=== PATIENT | female | born 1960 | race Caucasian/White ===

== ENCOUNTER 2024-03-12 14:57 | Inpatient (IN) | payer OTHER ==
[2024-03-12] MEDS ORDERED: Acetaminophen 325 MG TAB PO PRN (15:48)
[2024-03-12] MEDS ORDERED: Ondansetron ODT 4 MG TAB PO PRN (15:48)
[2024-03-12] MEDS ORDERED: Calcium Carbonate 500 MG ChewTAB PO PRN (15:48)
[2024-03-12] MEDS: Ipratropium/Albuterol 3 ML NEB NEB SCH (18:23)
[2024-03-12 19:56] LABS: Troponin I 0.123 ng/mL (< 0.028)
[2024-03-12] MEDS: Nicotine 21 MG PATCH TD PRN (20:25)
[2024-03-12] MEDS: Atorvastatin Calcium 10 MG TAB PO SCH (20:26)
[2024-03-12] MEDS: ALPRAZolam 0.25 MG TAB PO PRN (20:26)
[2024-03-12] MEDS: Amoxicillin/Potassium Clav 875 MG TAB PO SCH (20:26)
[2024-03-12] MEDS: Ipratropium/Albuterol 3 ML NEB NEB PRN (20:38)
[2024-03-12] MEDS: Benzonatate 100 MG CAP PO PRN (20:56)
[2024-03-13 03:01] VITALS: BMI 17.6
[2024-03-13 04:50] LABS: #Basophils Less than 0.03 10x3/uL (0.0-0.2); #Eosinophils Less than 0.03 10x3/uL (0.0-0.7); %Basophils 0.3 % (0.0-1.0); %Lymphocytes 12.2 % (21.0-51.0); %Monocytes 11.7 % (0.0-10.0); %Neutrophils 75.7 % (42.0-75.0); Hematocrit 38.5 % (36.0-47.0); Mean Corpuscular HGB CONC 33.8 g/dL (32.0-36.0); Mean Corpuscular Hemoglobin 34.3 pg (27.0-31.0); Mean Corpuscular Volume 101.6 fL (78.0-98.0); Mean Platelet Volume 9.6 fL (7.4-10.4); Platelet Count 210 10x3/uL (130-400); RBC Distribution Width 12.5 % (11.5-14.5); Red Blood Cell (RBC) Count 3.79 mill/uL (4.20-5.40)
[2024-03-13 05:00] LABS: Anion Gap 14 mmol/L (10-20); BUN (Urea Nitrogen) 11 mg/dL (9.8-20.1); Calc. Creatinine Clearance 60 mL/min (70-130); Calcium 9.5 mg/dL (7.8-10.44); Carbon Dioxide 25 mmol/L (23-31); Chloride 100 mmol/L (98-107); Estimated GFR 94; Glucose 129 mg/dL (80-115); Potassium 4.3 mmol/L (3.5-5.1); Sodium 135 mmol/L (136-145)
[2024-03-13] MEDS: predniSONE 20 MG TAB PO SCH (08:01)
[2024-03-13] MEDS: Cholecalciferol 1,000 UNITS (25 MCG) TAB PO SCH (08:01)
[2024-03-13] MEDS: Enoxaparin 40 MG (0.4 mL) SYRINGE SC SCH (08:02)
[2024-03-13] MEDS: GUAIFENESIN SF SOLN 200 MG/10 ML UDCUP PO PRN (08:02)
[2024-03-13] MEDS: Pantoprazole DR 40 MG TAB PO SCH (08:02)
[2024-03-13] MEDS: Benzonatate 100 MG CAP PO SCH (16:15)
[2024-03-13] MEDS: guaiFENesin/DM ER PO SCH (20:55)
[2024-03-14] MEDS: Melatonin 3 MG TAB PO SCH (00:14)
[2024-03-14] MEDS: QUEtiapine 25 MG TAB PO SCH ×2 (03:00→23:01)
[2024-03-14 04:14] LABS: Actual Bicarbonate (HCO3v) 22.1 mEq/L (22-28); Calcium, Ionized (venous) 1.11 mmol/L (1.16-1.32); Chloride (VBG) 103 mmol/L (98-106); Hematocrit-VBG 44 % (36.0-47.0); Hemoglobin (Hb) 15.1 g/dL (11.7-16.1); Potassium (VBG) 4.19 mmol/L (3.70-5.30); Sodium 137 mmol/L (133-146); pH (venous) 7.402 (7.32-7.43)
[2024-03-14] MEDS: Budesonide 0.5 MG/2 ML NEB INH SCH (09:09)
[2024-03-14 10:41] VITALS: BMI 17.6
[2024-03-14] MEDS: Sodium Chloride 0.9% 1,000 ML IV SCH (15:09)
[2024-03-15 05:39] LABS: #Basophils 0.04 10x3/uL (0.0-0.2); %Basophils 0.5 % (0.0-1.0); %Eosinophils 0.7 % (0.0-10.0); %Lymphocytes 18.8 % (21.0-51.0); %Neutrophils 70.6 % (42.0-75.0); Hematocrit 36.8 % (36.0-47.0); Hemoglobin 12.2 g/dL (12.0-16.0); Mean Corpuscular HGB CONC 33.2 g/dL (32.0-36.0); Mean Corpuscular Volume 105.4 fL (78.0-98.0); Mean Platelet Volume 9.7 fL (7.4-10.4); Platelet Count 204 10x3/uL (130-400); RBC Distribution Width 12.6 % (11.5-14.5); Red Blood Cell (RBC) Count 3.49 mill/uL (4.20-5.40)
[2024-03-15 05:55] LABS: Anion Gap 13 mmol/L (10-20); BUN (Urea Nitrogen) 17 mg/dL (9.8-20.1); Calc. Creatinine Clearance 69 mL/min (70-130); Calcium 8.8 mg/dL (7.8-10.44); Carbon Dioxide 23 mmol/L (23-31); Chloride 107 mmol/L (98-107); Estimated GFR 99; Glucose 96 mg/dL (80-115); Potassium 3.9 mmol/L (3.5-5.1); Sodium 139 mmol/L (136-145)
[2024-03-15] MEDS: Furosemide 20 MG (2 mL) VIAL SLOW IVP SCH (10:19)
[2024-03-15] MEDS: Potassium Chloride 20 MEQ TAB PO SCH (10:19)
[2024-03-15] MEDS: Empagliflozin 10 MG TAB PO SCH (10:19)
[2024-03-17 06:53] LABS: #Basophils 0.04 10x3/uL (0.0-0.2); %Basophils 0.6 % (0.0-1.0); %Eosinophils 1.5 % (0.0-10.0); %Monocytes 9.6 % (0.0-10.0); %Neutrophils 57.2 % (42.0-75.0); Hematocrit 39.8 % (36.0-47.0); Hemoglobin 13.3 g/dL (12.0-16.0); Mean Corpuscular HGB CONC 33.4 g/dL (32.0-36.0); Mean Corpuscular Hemoglobin 34.7 pg (27.0-31.0); Mean Corpuscular Volume 103.9 fL (78.0-98.0); Platelet Count 239 10x3/uL (130-400); RBC Distribution Width 12.3 % (11.5-14.5); Red Blood Cell (RBC) Count 3.83 mill/uL (4.20-5.40)
[2024-03-17 07:12] LABS: Anion Gap 13 mmol/L (10-20); BUN (Urea Nitrogen) 22 mg/dL (9.8-20.1); Calc. Creatinine Clearance 69 mL/min (70-130); Calcium 9.3 mg/dL (7.8-10.44); Carbon Dioxide 25 mmol/L (23-31); Chloride 106 mmol/L (98-107); Estimated GFR 99; Glucose 90 mg/dL (80-115); Potassium 3.7 mmol/L (3.5-5.1); Sodium 140 mmol/L (136-145)
[2024-03-17] MEDS: guaiFENesin/Codeine 200 mg/20 mg 10 ml Cup PO SCH (08:32)
[2024-03-17 12:53] VITALS: BP 160/64; TEMP 98.1
== END 2024-03-17 15:24 | disposition home or self-care (01) | DRG 190 ==
LOC: OBS 14:57
PROVIDERS: ADMIT Family Medicine; ATTEND Hospitalist
DX: J44.1 Chronic obstructive pulmonary disease with (acute) exacerbation (principal); I21.A1 Myocardial infarction type 2; J96.01 Acute respiratory failure with hypoxia; R64 Cachexia; Z68.1 Body mass index [BMI] 19.9 or less, adult; F41.9 Anxiety disorder, unspecified; E78.5 Hyperlipidemia, unspecified; K21.9 Gastro-esophageal reflux disease without esophagitis; F17.210 Nicotine dependence, cigarettes, uncomplicated; F10.90 Alcohol use, unspecified, uncomplicated; Z79.02 Long term (current) use of antithrombotics/antiplatelets; Z79.51 Long term (current) use of inhaled steroids; Z79.899 Other long term (current) drug therapy
CPT/HCPCS: 36415; 71045; 71250; 80048; 80053; 82805; 83605; 83880; 84145; 84484; 85025; 85379; 85610; 85730; 87040; 87428; 93005; 93306; 94640; 94760; 96372; 96374; 96375; J1650; J1940; J1956; J2919; J7512; J7620; J7626

== ENCOUNTER 2024-08-25 13:44 | Outpatient (CLI) | payer OTHER | END 2024-08-25 13:45 | disposition home or self-care (01) | LOC: RAD 13:44 | PROVIDERS: ATTEND Internal Medicine Critical Care Medicine | DX: R06.00 Dyspnea, unspecified (principal); J44.9 Chronic obstructive pulmonary disease, unspecified | CPT/HCPCS: 71046 ==